=== PATIENT | female | born 1985 | race Caucasian/White ===

== ENCOUNTER 2019-10-31 22:58 | Emergency (ER) | payer BC ==
[~2019-10-31] VITALS: Ht 170.2 cm; Wt 63.5 kg
[2019-10-31 23:07] VITALS: BP_SYST 113
--- NOTE | 2019-10-31 23:13 | NUR ---
Patient to ER bed 02 to gown for evaluation. Side rails up. Report given to Pierce YEPEZ.
--- NOTE | 2019-10-31 23:24 | NUR ---
Pt presents to ER with with c/o pain in throat and cough. Pt states she is nauseated and vomiting. No chills present, no fever present. Pt states cough and throat pain began yesterday. Pt states pain is 6/10 and states pain gets worse with swallowing and coughing.
--- NOTE | 2019-10-31 23:26 | NUR ---
ER Dr. Alvarado at bedside examining patient.
[2019-10-31] MEDS ORDERED: ONDANSETRON 4 MG ODT TAB PO ONE (23:30)
--- NOTE | 2019-11-01 00:55 | NUR ---
Patient given written and verbal discharge instructions and verbalizes understanding. ER MD discussed with patient the results and treatment provided. Patient in stable condition. ID arm band removed. Rx of Tamiflu given. Patient educated on pain management and to follow up with PMD. Pain Scale 0/10. Opportunity for questions provided and answered. Medication side effect fact sheet provided.
[2019-11-01 00:57] VITALS: BP_SYST 116
== END 2019-11-01 00:57 | disposition home or self-care (01) ==
LOC: SED 22:58
DX: O26.892 Other specified pregnancy related conditions, second trimester (principal); J10.1 Influenza due to other identified influenza virus with other respiratory manifestations; Z3A.15 15 weeks gestation of pregnancy
CPT/HCPCS: 86710; 99283; Q0162; 36415